=== PATIENT | female | born 1980 | race Caucasian/White ===

== ENCOUNTER 2019-11-03 19:44 | Observation (INO) | payer OTHER | END 2019-11-03 21:17 | disposition home or self-care (01) | LOC: INTOOBSV 19:44 → SPU 19:44 | PROVIDERS: ADMIT Obstetrics & Gynecology; ATTEND Obstetrics & Gynecology | DX: O62.9 Abnormality of forces of labor, unspecified (principal); Z3A.37 37 weeks gestation of pregnancy | CPT/HCPCS: G0378 ==

== ENCOUNTER 2019-11-10 23:14 | Inpatient (IN) | payer OTHER ==
[~2019-11-10] VITALS: Ht 160 cm; Wt 86.2 kg
[2019-11-11] MEDS ORDERED: OXYTOCIN/0.9 % SODIUM CHLORIDE 1,000 ML IV SCH ×2 (00:46→22:30)
[2019-11-11] MEDS ORDERED: AMPICILLIN SODIUM 2 GM in NS 100 ML IV ONE (01:00)
[2019-11-11] MEDS ORDERED: AMPICILLIN SODIUM 2 GM VIAL ONE (01:15)
[2019-11-11] MEDS ORDERED: LR 500 ML IV ONE (01:27)
[2019-11-11] MEDS ORDERED: LR 1,000 ML IV ONE (01:27)
[2019-11-11 01:30] LABS: BASOPHILS % (AUTO) 0.5 % (0.0-2.0); EOSINOPHILS # (AUTO) 0.1 K/uL (0.0-0.4); EOSINOPHILS % (AUTO) 1.2 % (0.0-4.0); HEMATOCRIT 37.4 % (36-48); HEMOGLOBIN 13.2 g/dL (12.0-16.0); LYMPHOCYTES # (AUTO) 2.2 K/uL (1.0-5.5); LYMPHOCYTES % (AUTO) 22.6 % (20.5-51.5); MEAN CORPUSCULAR HEMOGLOBIN 33 pg (27-31); MEAN CORPUSCULAR HGB CONC 35 % (32-36); MEAN CORPUSCULAR VOLUME 93 fL (79.0-98.0); MONOCYTES # (AUTO) 0.8 K/uL (0.0-1.0); MONOCYTES % (AUTO) 8.5 % (1.7-9.3); NEUTROPHILS # (AUTO) 6.6 K/uL (1.8-7.7); NEUTROPHILS % (AUTO) 67.2 % (40.0-70.0); PLATELET COUNT (AUTO) 234 K/uL (130-430); RED BLOOD CELL COUNT(AUTO) 4.04 MIL/uL (4.2-6.2); RED CELL DISTRIBUTION WIDTH 12.9 % (9.0-15.0); WHITE BLOOD COUNT (AUTO) 9.8 K/uL (4.8-10.8)
[2019-11-11] MEDS ORDERED: TERBUTALINE SULFATE 1 MG/ML VIAL SUBCUT ONE (01:30)
[2019-11-11] MEDS: MORPHINE 4 MG/ML INJ. SYRINGE IVP PRN ×2 (03:10→07:35)
[2019-11-11] MEDS ORDERED: MORPHINE SULFATE 10 MG/ML VIAL ONE (03:10)
[2019-11-11] MEDS: AMPICILLIN SODIUM 1 GM in NS 50 ML IV SCH ×5 (04:56→20:25)
[2019-11-11] MEDS ORDERED: AMPICILLIN SODIUM 1 GM VIAL ONE (05:29)
[2019-11-11] MEDS ORDERED: MORPHINE SULFATE 10 MG/ML VIAL IVP PRN (07:51)
[2019-11-11] MEDS ORDERED: LR 1,000 ML IV SCH (13:15)
[2019-11-11] MEDS ORDERED: fentaNYL CITRATE/PF 100 MCG/2 ML AMP ONE (14:55)
[2019-11-11] MEDS ORDERED: ROPIVACAINE HCL/PF 0.2% 200 ML ONE (14:55)
[2019-11-11] MEDS ORDERED: DIPHENHYDRAMINE INJ 50 MG/ML VIAL IM ONE (15:15)
[2019-11-11] MEDS ORDERED: OXYTOCIN/0.9 % SODIUM CHLORIDE 1,000 ML IV ONE (22:30)
[2019-11-11] MEDS ORDERED: LANOLIN 7 GM OINT. TP PRN (22:30)
[2019-11-11] MEDS ORDERED: METHYLERGONOVINE MALEATE 0.2 MG TABLET PO PRN (22:30)
[2019-11-11] MEDS ORDERED: RHO(D) IMMUNE GLOBULIN/MALTOSE 1500 UNITS/1.3 ML (WINHRO) IM PRN (22:30)
[2019-11-11] MEDS ORDERED: HYDROcodone/ACETAMIN 5-325 MG TAB (NORCO/ VICODIN) PO PRN (22:45)
[2019-11-11] MEDS ORDERED: OXYCODONE/ACETAMINOPHEN 5-325 TABLET PO PRN (22:45)
[2019-11-12] MEDS: IBUPROFEN 600 MG TABLET PO SCH ×4 (00:22→18:32)
[2019-11-12] MEDS: DOCUSATE SODIUM 100 MG CAPSULE PO PRN ×2 (00:23→22:21)
[2019-11-12] MEDS ORDERED: DERMOPLAST SPRAY TP ONE (01:55)
[2019-11-12] MEDS: OXYCODONE/ACETAMINOPHEN *10*mg/325 mg TABLET PO PRN ×3 (06:08→22:17)
[2019-11-12 06:48] LABS: HEMATOCRIT 33.3 % (36-48); HEMOGLOBIN 11.5 g/dL (12.0-16.0)
[2019-11-12] MEDS ORDERED: LR 500 ML IV ONE (09:59)
[2019-11-12] MEDS ORDERED: FENT2mCg/mL-ROPIVA0.2%/NS EPID 200 ML EP SCH (10:00)
[2019-11-13] MEDS: IBUPROFEN 600 MG TABLET PO SCH ×2 (00:36→06:11)
[2019-11-13] MEDS ORDERED: PHENYLEPH/MINERAL OIL/PETROLAT 45 GM OINT.APPL TP PRN (05:00)
[2019-11-13] MEDS: OXYCODONE/ACETAMINOPHEN *10*mg/325 mg TABLET PO PRN (06:14)
== END 2019-11-13 07:30 | disposition home or self-care (01) | DRG 560 ==
LOC: SPU 23:14
PROVIDERS: ADMIT Obstetrics & Gynecology; ATTEND Obstetrics & Gynecology
PROC: 10E0XZZ Delivery of Products of Conception, External Approach (ICD-10-PCS; principal; 2019-11-11)
PROC: 3E0R3BZ Introduction of Anesthetic Agent into Spinal Canal, Percutaneous Approach (ICD-10-PCS; 2019-11-11)
PROC: 00HU33Z Insertion of Infusion Device into Spinal Canal, Percutaneous Approach (ICD-10-PCS; 2019-11-11)
DX: O99.824 Streptococcus B carrier state complicating childbirth (principal); Z37.0 Single live birth; Z3A.38 38 weeks gestation of pregnancy
CPT/HCPCS: 36415; 81002-TC; 85018-TC; 85025; 86592; 86886; 86900; 86901; J0290; J1200; J2270; J2590; J3010; J7120